=== PATIENT | male | born 1975 | race Two or more races ===

== ENCOUNTER 2017-01-17 15:45 | Emergency (ER) | payer BC ==
[~2017-01-17] VITALS: Ht 175.3 cm; Wt 68.8 kg
[2017-01-17 15:58] VITALS: BP 113/69
[2017-01-17] MEDS ORDERED: LIDOCAINE 1%, 20ML ONE (16:24)
[2017-01-17] MEDS ORDERED: DIPH,PERTUSS(ACELL),TET VAC/PF 0.5 ML IM-VACC ONE ×2 (16:27→16:30)
[2017-01-17] MEDS ORDERED: BUPIVACAINE 0.25% ONE (16:30)
[2017-01-17] MEDS ORDERED: BACITRACIN ZINC OINT 500U/GM, 0.9 GM ONE (16:52)
== END 2017-01-17 17:06 | disposition home or self-care (01) ==
LOC: ED 17:00
DX: S61.211A Laceration without foreign body of left index finger without damage to nail, initial encounter (principal); X58.XXXA Exposure to other specified factors, initial encounter; Y93.89 Activity, other specified; Y92.89 Other specified places as the place of occurrence of the external cause; Y99.8 Other external cause status
CPT/HCPCS: 12001; 90471; 90715

== ENCOUNTER 2019-02-18 06:06 | Day surgery (SDC) | payer OTHER ==
[~2019-02-18] VITALS: Ht 180.3 cm; Wt 66.1 kg
[2019-02-18] MEDS ORDERED: BUPIVACAINE/EPI 0.5% 1:200K ONE (06:16)
[2019-02-18] MEDS ORDERED: GABAPENTIN 300 MG CAPSULE PO STA (06:21)
[2019-02-18] MEDS ORDERED: FENTANYL PF 250 MCG/5ML ONE (06:25)
[2019-02-18] MEDS ORDERED: MIDAZOLAM 1 MG/ML, 2ML ONE (06:25)
[2019-02-18] MEDS ORDERED: LACTATED RINGERS 1,000 ML IV SCH (06:27)
[2019-02-18] MEDS ORDERED: none per pt (06:28)
[2019-02-18] MEDS ORDERED: ACETAMINOPHEN 500 MG TABLET PO ONE (06:30)
[2019-02-18 06:31] VITALS: BP 100/72
[2019-02-18] MEDS ORDERED: MORPHINE SULFATE 4 MG/ML, 1ML IVPush PRN (07:00)
[2019-02-18] MEDS ORDERED: hydrALAzine 20 MG/ML, 1ML IV PRN (07:00)
[2019-02-18] MEDS ORDERED: PROMETHAZINE 25 MG SUPP PR PRN (07:00)
[2019-02-18] MEDS ORDERED: PROMETHAZINE 12.5 MG SUPP PR PRN (07:00)
[2019-02-18] MEDS ORDERED: ONDANSETRON 2MG/ML, 2ML IV PRN (07:00)
[2019-02-18] MEDS ORDERED: OXYcodone 5 MG/5 ML ORAL.SOL UDC PO PRN (07:00)
[2019-02-18] MEDS ORDERED: ONDANSETRON ODT 8 MG PO PRN (07:00)
[2019-02-18] MEDS ORDERED: FENTANYL PF 100 MCG/2ML IV PRN (07:00)
[2019-02-18] MEDS ORDERED: PROMETHAZINE 25 MG/ML, 1ML IM PRN ×2 (07:00)
[2019-02-18] MEDS ORDERED: PROMETHAZINE 25 MG/ML, 1ML IV PRN (07:00)
[2019-02-18] MEDS ORDERED: MEPERIDINE/PF 25MG/0.5ML IVPush PRN (07:00)
[2019-02-18] MEDS ORDERED: LABETALOL 5MG/ML, 20ML IV PRN (07:00)
[2019-02-18] MEDS ORDERED: HYDROmorphone 2 MG/ML, 1ML IVPush PRN (07:00)
[2019-02-18] MEDS ORDERED: GLYCOPYRROLATE 0.2MG/1ML, 5ML ONE (07:08)
[2019-02-18] MEDS ORDERED: ROCURONIUM 10MG/ML,5ML ONE (07:08)
[2019-02-18] MEDS ORDERED: PROPOFOL 10 MG/ML, 20ML ONE (07:08)
[2019-02-18] MEDS ORDERED: NEOSTIGMINE 1 MG/ML, 10ML ONE (07:08)
[2019-02-18] MEDS ORDERED: CEFAZOLIN 1,000 MG ONE (07:08)
[2019-02-18] MEDS ORDERED: KETOROLAC 30 MG/1 ML ONE (07:08)
[2019-02-18] MEDS ORDERED: FENTANYL PF 100 MCG/2ML ONE (07:48)
[2019-02-18] MEDS ORDERED: BUPIVACAINE/PF-EPI 0.5% 1:200K INFIL ONE (09:01)
== END 2019-02-18 15:12 | disposition home or self-care (01) ==
LOC: OUT 06:06
PROVIDERS: ATTEND Surgery
DX: K80.20 Calculus of gallbladder without cholecystitis without obstruction (principal); Z72.89 Other problems related to lifestyle
CPT/HCPCS: 49650; C1781; J0690; J1885; J2250; J2704; J2710; J3010; J7120; S2900